=== PATIENT | female | born 1985 | race Caucasian/White ===

== ENCOUNTER 2016-08-17 19:28 | Observation (INO) | payer MEDICAID ==
[~2016-08-17] VITALS: Ht 154.9 cm; Wt 74.4 kg
[2016-08-17] MEDS ORDERED: PREN-88 PO (20:08)
== END 2016-08-17 21:16 | disposition home or self-care (01) ==
LOC: L&D 19:28
PROVIDERS: ADMIT Obstetrics & Gynecology; ATTEND Obstetrics & Gynecology
DX: Z34.83 Encounter for supervision of other normal pregnancy, third trimester (principal); Z3A.34 34 weeks gestation of pregnancy
CPT/HCPCS: 59025; 76815; 76818; G0378

== ENCOUNTER 2016-08-24 19:20 | Observation (INO) | payer MEDICAID ==
[~2016-08-24] VITALS: Ht 165.1 cm; Wt 74.4 kg
[~2016-08-24 19:20] MED LIST: PREN-88 PO
[2016-08-24] MEDS ORDERED: PREN-88 PO (21:03)
== END 2016-08-24 21:15 | disposition home or self-care (01) ==
LOC: L&D 19:20
PROVIDERS: ADMIT Obstetrics & Gynecology; ATTEND Obstetrics & Gynecology
DX: O24.913 Unspecified diabetes mellitus in pregnancy, third trimester (principal); Z3A.35 35 weeks gestation of pregnancy
CPT/HCPCS: 76805; 76818; 99281; G0378

== ENCOUNTER 2016-08-31 19:34 | Observation (INO) | payer MEDICAID ==
[~2016-08-31] VITALS: Ht 149.9 cm; Wt 74.8 kg
== END 2016-08-31 21:15 | disposition home or self-care (01) ==
LOC: L&D 19:34
PROVIDERS: ADMIT Obstetrics & Gynecology; ATTEND Obstetrics & Gynecology
DX: O24.419 Gestational diabetes mellitus in pregnancy, unspecified control (principal); Z3A.36 36 weeks gestation of pregnancy
CPT/HCPCS: 76815; 76818; 99281; G0378

== ENCOUNTER 2016-09-07 19:29 | Observation (INO) | payer MEDICAID ==
[~2016-09-07] VITALS: Ht 160 cm; Wt 74.8 kg
== END 2016-09-07 21:30 | disposition home or self-care (01) ==
LOC: L&D 19:29
PROVIDERS: ADMIT Obstetrics & Gynecology; ATTEND Obstetrics & Gynecology
DX: Z34.93 Encounter for supervision of normal pregnancy, unspecified, third trimester (principal); Z3A.38 38 weeks gestation of pregnancy
CPT/HCPCS: 76815; 76818; G0378

== ENCOUNTER 2016-09-14 19:21 | Observation (INO) | payer MEDICAID ==
[~2016-09-14] VITALS: Ht 152.4 cm; Wt 75.7 kg
== END 2016-09-14 20:45 | disposition home or self-care (01) ==
LOC: L&D 19:21
PROVIDERS: ADMIT Obstetrics & Gynecology; ATTEND Obstetrics & Gynecology
DX: O24.419 Gestational diabetes mellitus in pregnancy, unspecified control (principal); Z3A.00 Weeks of gestation of pregnancy not specified
CPT/HCPCS: 76815; 76818; 99281; G0378